=== PATIENT | female | born 1970 | race African-American/Black ===

== ENCOUNTER 2022-02-17 13:48 | Emergency (ER) | payer MEDICAID, OTHER ==
[~2022-02-17] VITALS: Ht 177.8 cm; Wt 118.0 kg
[~2022-02-17 13:48] MED LIST: AMLO10TA80 MT; CLOP-31 PO; FURO40TA5 MT; GABA-532 PO; HYDR-4135 MT; LISI40TA13 MT; METF-874 PO; METO-385 MT; NAPR-681 MT
[2022-02-17 13:50] VITALS: BP 168/117
[2022-02-17] MEDS ORDERED: LIDOCAINE 5% PATCH TOP SCH (17:30)
[2022-02-17] MEDS ORDERED: KETOROLAC 60MG/2ML VIAL IM ONE (17:30)
[2022-02-17 17:55] LABS: BASOPHILS % 0.9 % (0.0-2.0); EOSINOPHILS % 1.7 % (0.0-5.0); HEMATOCRIT. 42.4 % (36.0-48.0); HEMOGLOBIN. 13.9 g/dL (12.0-16.0); LYMPHOCYTES % 35.3 % (20.0-50.0); MEAN CORPUSCULAR VOLUME 82.5 fL (81.0-99.0); MEAN PLATELET VOLUME 8.6 fl (7.4-10.4); MONOCYTES % 8.4 % (2.0-8.0); NEUTROPHILS % 53.7 % (40.0-76.0); PLATELET 361 x1000/uL (130-400); RED BLOOD CELL COUNT 5.15 mill/uL (4.2-5.4); RED CELL DISTRIBUTION WIDTH 13.7 % (11.6-14.6)
[2022-02-17 18:01] LABS: CHLORIDE 109 mEq/L (98-107)
[2022-02-17 18:12] LABS: HCG SCREEN NEGATIVE
[2022-02-17] MEDS ORDERED: METHOCARBAMOL 500MG TABLET PO ONE (18:45)
[2022-02-17] MEDS ORDERED: HYDROCODONE/ACETAMINOPHEN 5/325MG TABLET PO ONE (18:45)
[2022-02-17] MEDS ORDERED: LORAZEPAM 0.5MG TABLET PO ONE (19:45)
[2022-02-17] MEDS ORDERED: ACETAMINOPHEN 325MG TABLET PO ONE (19:45)
[2022-02-17] MEDS ORDERED: DIPH25CA83 MT (22:41)
[2022-02-17] MEDS ORDERED: LIDO700A30 TP (22:41)
[2022-02-17] MEDS ORDERED: METH-653 MT (22:41)
[2022-02-17] MEDS ORDERED: NAPR-681 MT (22:46)
== END 2022-02-17 23:38 | disposition home or self-care (01) ==
LOC: ER 13:48
DX: R53.1 Weakness (principal); I10 Essential (primary) hypertension; Z79.899 Other long term (current) drug therapy; Z98.890 Other specified postprocedural states; Z86.73 Personal history of transient ischemic attack (TIA), and cerebral infarction without residual deficits
CPT/HCPCS: 36415; 71045; 73030; 80053; 82962; 83880; 84484; 84703; 85025; 93005; 96372; 99285; J1885